=== PATIENT | female | born 1955 | race Caucasian/White ===

== ENCOUNTER 2016-05-27 13:01 | Inpatient (IN) | payer BC ==
[~2016-05-27] VITALS: Ht 172.7 cm; Wt 84.0 kg
[~2016-05-27 13:01] MED LIST: DORZO2%O EACH EYE; LATA.005%O OU; OXYC5 PO
[2016-06-01] MEDS ORDERED: NEOSTIGMINE 3 MG/3 ML SYR IV ONE (12:00)
[2016-06-01] MEDS ORDERED: ONDANSETRON HCL 4 MG/2 ML VIAL IV PUSH ONE (12:00)
[2016-06-01] MEDS ORDERED: PROPOFOL 200 MG/20 ML AMP IV ONE (12:00)
[2016-06-01] MEDS ORDERED: LACTATED RINGER'S 1000 ML INJ 1,000 ML IV ONE (12:00)
[2016-06-01] MEDS ORDERED: DORZ2SOL EACH EYE (13:38)
[2016-06-01] MEDS ORDERED: ICAPCAP PO (13:38)
[2016-06-01] MEDS ORDERED: LATA0.002 EACH EYE (13:38)
[2016-06-01] MEDS ORDERED: APIX2.5T PO (13:47)
[2016-06-01 13:48] VITALS: BP 121/73; PULSE 99; RESP 16; TEMP 98.1; O2SAT 99
[2016-06-01] MEDS ORDERED: INSULIN HUMAN REGULAR 1,000 UNITS/10 ML VIAL SQ PRN (14:00)
[2016-06-01] MEDS ORDERED: METOPROLOL TARTRATE 25 MG TAB PO PRN (14:00)
[2016-06-01] MEDS ORDERED: ceFAZolin 2 GM PREMIX 50 ML IV SCH (14:00)
[2016-06-01] MEDS ORDERED: LACTATED RINGER'S 1000 ML IV SCH (14:00)
[2016-06-01] MEDS ORDERED: METRONIDAZOLE 500 MG/100 ML ISONTONIC SOLN IV SCH (14:00)
[2016-06-01] MEDS ORDERED: SODIUM CHLORID 0.9% 500 ML IV SCH (14:00)
[2016-06-01] MEDS ORDERED: CHLORHEXIDINE GLUCONATE 2 % 1 PACK (2 CLOTHS) TOP SCH (14:15)
[2016-06-01] MEDS ORDERED: POVIDONE IODINE 5% (ANTISEPSIS KIT) 4 APPLICATIONS TOPICAL SCH (14:15)
[2016-06-01] MEDS ORDERED: FAMOTIDINE 20 MG/2 ML VIAL ONE (16:14)
[2016-06-01] MEDS ORDERED: MIDAZOLAM HCL 2 MG/2 ML VIAL ONE (16:14)
[2016-06-01] MEDS ORDERED: LIDOCAINE 1%/EPINEPHrine 1:100,000 SOLN 20 ML VIAL ONE (16:19)
[2016-06-01] MEDS ORDERED: fentaNYL CITRATE 250 MCG/5 ML AMP ONE (18:37)
[2016-06-01] MEDS ORDERED: *morphine SULFATE 8 MG/ML PERIprocedure ONLY ONE (18:43)
[2016-06-01] MEDS ORDERED: ACETAMINOPHEN 325 MG TAB PO PRN (18:45)
[2016-06-01] MEDS ORDERED: NALOXONE HCL 0.4 MG/ML AMP IV PRN (18:45)
[2016-06-01] MEDS ORDERED: POTASSIUM CHLOR 20 MEQ PREMIX 100 ML IV PRN (18:45)
[2016-06-01] MEDS ORDERED: BENZOCAINE 6 MG/MENTHOL 10 MG LOZENGE SUCK-ON PRN (18:45)
[2016-06-01] MEDS ORDERED: ACETAMINOPHEN/HYDROcodone 325 MG/5 MG TAB PO PRN ×2 (18:45)
[2016-06-01] MEDS ORDERED: MORPHINE SULFATE 30 MG/30 ML PCA IV SCH (18:45)
[2016-06-01] MEDS ORDERED: Post-op Orders (for Pharmacy) MISC XX ONE (18:45)
[2016-06-01] MEDS ORDERED: POTASSIUM CHLOR 40 MEQ PREMIX 100 ML IV PRN (18:45)
[2016-06-01] MEDS ORDERED: ENALAPRILAT 2.5 MG/2 ML VIAL IV PRN (18:45)
[2016-06-01] MEDS ORDERED: SODIUM CHLORIDE 0.9% FLUSH 5 ML FLUSH IVF PRN (18:45)
[2016-06-01] MEDS ORDERED: ENALAPRILAT 1.25 MG/ML VIAL IV PRN (18:45)
[2016-06-01] MEDS ORDERED: diphenhydrAMINE HCL 50 MG/ML VIAL IV PRN (18:45)
[2016-06-01] MEDS: D5-NS + KCL 20 MEQ INJ 1,000 ML IV SCH (18:54)
[2016-06-01 18:58] LABS: AUTOMATED NEUTROPHIL # 5.5 TH/MM3 (1.8-7.7); BASOPHIL % 0.4 % (0.0-2.0); EOSINOPHIL % 0.6 % (0.0-4.0); HEMATOCRIT 34.4 % (35.0-46.0); HEMO FLAGS DIFF FINAL; LYMPH % 9.2 % (9.0-44.0); LYMPHOCYTE # 0.6 TH/MM3 (1.0-4.8); MEAN CELL VOLUME 87.3 FL (80.0-100.0); MEAN CORPUSCULAR HEMOGLOBIN 27.7 PG (27.0-34.0); MEAN CORPUSCULAR HGB CONC 31.7 % (32.0-36.0); MONO % 6.7 % (0.0-8.0); NEUT % 83.1 % (16.0-70.0); PLATELET COUNT 247 TH/MM3 (150-450); RED BLOOD COUNT 3.94 MIL/MM3 (4.00-5.30); RED CELL DISTRIBUTION WIDTH 14.7 % (11.6-17.2); WHITE BLOOD COUNT 6.7 TH/MM3 (4.0-11.0)
[2016-06-01 19:12] LABS: BICARBONATE 21.5 MEQ/L (21.0-32.0); POTASSIUM 4.3 MEQ/L (3.5-5.1)
[2016-06-01] MEDS ORDERED: DO NOT ADM ANY ANTICOAGULANT DRUGS XX PRN (19:15)
[2016-06-01] MEDS ORDERED: KETOROLAC TROMETHAMINE 30 MG/ML (IVP) VIAL IVP SCH (20:00)
[2016-06-01 20:45] VITALS: BP 115/69; PULSE 87; RESP 18; TEMP 97.3; O2SAT 100
[2016-06-01 21:00] VITALS: PULSE 96
[2016-06-01] MEDS: LATANOPROST 0.005% OPHT SOLN 2.5 ML BTL EACH EYE SCH (21:18)
[2016-06-01] MEDS: DORZOLAMIDE 2% OPTH SOLN 200 DROP/10 ML BTLO EACH EYE SCH (21:18)
[2016-06-01] MEDS: SODIUM CHLORIDE 0.9% FLUSH 5 ML FLUSH IVF SCH (21:19)
[2016-06-01 22:00] VITALS: PULSE 64
[2016-06-01] MEDS: PCA - TOTAL MG MORPHINE DELIVERED PER SHIFT SCH (22:00)
[2016-06-01 23:00] VITALS: BP 115/69; PULSE 87; PULSE 96; RESP 18; TEMP 97.1; O2SAT 100
[2016-06-02] VITALS (28 sets, daily range): BP systolic 98–128; BP diastolic 53–76; PULSE 64–109; RESP 18–20; TEMP 97.1–98.2; O2SAT 93–99
[2016-06-02] MEDS ORDERED: SODIUM CHLOR 0.9% 1000 ML INJ 1,000 ML IV ONE (00:45)
[2016-06-02] MEDS: D5-NS + KCL 20 MEQ INJ 1,000 ML IV SCH ×3 (01:57→13:25)
[2016-06-02] MEDS: metroNIDAZOLE 500 MG INJ 100 ML IV SCH ×3 (01:57→16:35)
[2016-06-02] MEDS: PCA - TOTAL MG MORPHINE DELIVERED PER SHIFT SCH ×3 (06:00→22:00)
[2016-06-02 06:30] LABS: AUTOMATED NEUTROPHIL # 7.1 TH/MM3 (1.8-7.7); BASOPHIL % 0.3 % (0.0-2.0); EOSINOPHIL % 0.1 % (0.0-4.0); HEMATOCRIT 30.9 % (35.0-46.0); HEMO FLAGS DIFF FINAL; LYMPHOCYTE # 0.3 TH/MM3 (1.0-4.8); MEAN CELL VOLUME 87.2 FL (80.0-100.0); MEAN CORPUSCULAR HEMOGLOBIN 28.4 PG (27.0-34.0); MEAN CORPUSCULAR HGB CONC 32.5 % (32.0-36.0); MONO % 6.1 % (0.0-8.0); NEUT % 89.5 % (16.0-70.0); PLATELET COUNT 244 TH/MM3 (150-450); RED BLOOD COUNT 3.55 MIL/MM3 (4.00-5.30); RED CELL DISTRIBUTION WIDTH 14.9 % (11.6-17.2); WHITE BLOOD COUNT 7.9 TH/MM3 (4.0-11.0)
[2016-06-02 07:09] LABS: BICARBONATE 21.8 MEQ/L (21.0-32.0)
[2016-06-02] MEDS: SODIUM CHLORIDE 0.9% FLUSH 5 ML FLUSH IVF SCH ×2 (08:53→21:00)
[2016-06-02] MEDS: PANTOPRAZOLE SODIUM 40 MG VIAL IVP SCH (08:53)
[2016-06-02] MEDS: DORZOLAMIDE 2% OPTH SOLN 200 DROP/10 ML BTLO EACH EYE SCH ×2 (08:58→22:14)
[2016-06-02] MEDS: ONDANSETRON HCL 4 MG/2 ML VIAL IV PRN (15:55)
--- NOTE | 2016-06-02 15:56 | HHI.PR ---
Subjective Remarks POD#1 s/p THOMAS, resection/reanastomosis ileostomy nauseous Objective Vital Signs Date Time Temp Pulse Resp B/P Pulse Ox O2 Delivery O2 Flow Rate FiO2 06/02/16 15:13 109 06/02/16 15:04 96 21 06/02/16 14:34 87 06/02/16 14:00 18 06/02/16 13:14 85 06/02/16 12:12 97.8 92 18 103/60 98 06/02/16 12:10 92 06/02/16 11:04 98 06/02/16 10:33 98 06/02/16 09:15 68 06/02/16 09:04 98.0 84 18 98/53 98 06/02/16 07:35 78 06/02/16 06:00 100 06/02/16 06:00 20 06/02/16 05:00 96 06/02/16 04:00 77 06/02/16 03:58 99 Nasal Cannula 1.50 06/02/16 03:00 97.9 87 20 101/60 99 06/02/16 03:00 71 06/02/16 02:00 94 06/02/16 01:00 92 06/02/16 00:00 64 06/01/16 23:00 97.1 87 18 115/69 100 06/01/16 23:00 96 06/01/16 22:00 64 06/01/16 22:00 18 06/01/16 21:00 96 06/01/16 20:45 97.3 87 18 115/69 100 06/01/16 20:30 68 16 96/55 97 Nasal Cannula 2 06/01/16 19:30 58 16 130/68 99 Nasal Cannula 2 06/01/16 19:15 74 16 127/77 99 Nasal Cannula 2 06/01/16 19:00 74 16 142/83 100 Nasal Cannula 2 06/01/16 18:52 16 06/01/16 18:45 62 16 156/79 99 Nasal Cannula 2 06/01/16 18:34 97.6 81 16 142/79 97 Nasal Cannula 2 I/O 06/01/16 06/01/16 06/01/16 06/02/16 06/02/16 06/02/16 07:00 15:00 23:00 07:00 15:00 23:00 Intake Total 1200 ml 2930 ml Output Total 50 ml 350 ml Balance 1150 ml 2580 ml Intake Oral 480 ml IV Total 2450 ml Other 1200 ml Output Urine Total 0 ml 350 ml Estimated Blood Loss 50 ml # Voids 1 # Bowel Movements 0 Result Diagram: 06/02/1661406/02/16614 Objective Remarks Abdomen tender, nondistended Dressing - serosanguinous drainage Assessment and Plan Assessment and Plan Hold on PO until nausea resolves Ileus not unexpected with significant adhesiolysis Vicki Garcia MD Jun 02, 2016 15:56
[2016-06-02] MEDS ORDERED: HEPARIN SODIUM - SQ 10,000 UNITS/ML VIAL SQ SCH (16:00)
[2016-06-02] MEDS: LATANOPROST 0.005% OPHT SOLN 2.5 ML BTL EACH EYE SCH (22:14)
--- NOTE | 2016-06-02 23:58 | MP ---
cc: LEO GARCIA M.D., PAUL M. MD DATE OF SURGERY: 06/01/2016 PREOPERATIVE DIAGNOSIS: Rectal cancer. POSTOPERATIVE DIAGNOSIS 1. Rectal cancer 2. Adhesions. PROCEDURE 1. Resection with reanastomosis of ileostomy. 2. Lysis of adhesions. 3. Appendectomy. SURGEON Becca Garcia MD. HR MANAGER: None. ANESTHESIA: General per ET tube ESTIMATED BLOOD LOSS 100 cc OPERATIVE INDICATIONS The patient is a 61-year-old female who is status post neoadjuvant chemotherapy and radiation for a rectal cancer, followed by a robotic low anterior resection with diverting loop ileostomy. 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 In addition the appendix traversed through this and across, and was caught in the adhesions as well. OPERATIVE COURSE The patient was brought to the operating room, and placed in the supine position. After induction of general anesthesia, the skin of the anterior abdominal wall was prepped and draped in the usual sterile fashion. The stomal suture closed with 3-0 Vicryl. An incision was made sharply around the stoma and, using electrocautery, dissection was carried down to the edge of the fascia. This was slow and tedious as there was quite a bit of adhesions and there was a hernia sac over to the right. Eventually and with quite a bit of slow tedious dissection, we were able to free up the fascial edges on the inferior side and the right side. At that point, it was noted that the appendix was pulled into this as well, and had damage to it. I planned at that point proceeding with an appendectomy as well. Eventually we were able to free the small bowel of the hernia sac and had a clean fascia circumferentially and the bowel was prolapsed up and out of the peritoneal cavity. The distal bowel to the stoma, between the stoma and the cecum was clean, but fairly short in length, measuring possibly 10-12 cm in total length. The proximal bowel did have an area of fairly significant thinning and inflammation from where it had been stuck inside the hernia sac and so I did elect to place the proximal resection margin just upstream of this. The mesentery was cleared circumferentially and a LINDSAY 55 blue load stapler was placed across the bowel, both proximal and distal to the stoma. The intervening mesentery was serially divided and ligated using 0 Vicryl ties. The antimesenteric corners of the staple line were then removed. One limb of the gastrointestinal stapler was placed down each limb of the bowel. This was closed along the antimesenteric border, fired, and removed, thus creating an enteroenterotomy. The enteroenterotomy was closed transversely using the TX60 stapling device. The anastomosis was palpated and found to be widely patent, although somewhat smaller than my usual anastomosis. However, it lay nicely without tension. A simple stay suture was placed at the distal end of the anastomosis using 3-0 Vicryl and the mesenteric defect was closed in a running fashion using 3-0 Vicryl. There was a small area of bleeding on one of the staple lines and this was controlled in a [id number] fashion, using 3-0 Vicryl. The anastomosis and bowel were then gently prolapsed back into the peritoneal cavity. The area where the appendix had stuck to the fascia was then dissected free using electrocautery, and the appendiceal vessels were dissected free, doubly clamped proximally, divided and ligated using 0 Vicryl ties. A reload of the LINDSAY 55 stapler was then placed across the base of the appendix, fired and removed. There was a small amount of bleeding on the staple line that was controlled with [id number] fashion using 3-0 Vicryl. This was also placed back into the peritoneal cavity where it lay nicely without tension. The posterior fascia of the anterior abdominal wall was then closed in a running fashion using #1 PDS and the anterior fascia of the anterior abdominal wall was closed in running fashion using #1 PDS. The wound was copiously irrigated with warm normal saline and the skin was closed in a running subcuticular fashion using 3-0 Vicryl. Sterile dressing was then applied. All sponge, needle and instrument counts were correct, and the patient was returned to the Post-Anesthesia Care Unit in stable condition. MD SOPHIE [place]/ANABEL /6:45 PM /11:31 PM LEANDRO
[2016-06-03] VITALS (15 sets, daily range): BP systolic 109–142; BP diastolic 67–92; PULSE 86–117; RESP 16–20; TEMP 96.2–99.5; O2SAT 93–96
[2016-06-03] MEDS: D5-NS + KCL 20 MEQ INJ 1,000 ML IV SCH ×3 (00:09→13:59)
[2016-06-03] MEDS: PCA - TOTAL MG MORPHINE DELIVERED PER SHIFT SCH (06:00)
[2016-06-03 06:14] LABS: AUTOMATED NEUTROPHIL # 8.6 TH/MM3 (1.8-7.7); BASOPHIL % 0.1 % (0.0-2.0); HEMATOCRIT 32.7 % (35.0-46.0); HEMO FLAGS DIFF FINAL; LYMPH % 2.8 % (9.0-44.0); LYMPHOCYTE # 0.3 TH/MM3 (1.0-4.8); MEAN CELL VOLUME 86.7 FL (80.0-100.0); MEAN CORPUSCULAR HGB CONC 32.3 % (32.0-36.0); MONO % 5.3 % (0.0-8.0); NEUT % 91.8 % (16.0-70.0); PLATELET COUNT 225 TH/MM3 (150-450); RED BLOOD COUNT 3.77 MIL/MM3 (4.00-5.30); RED CELL DISTRIBUTION WIDTH 14.6 % (11.6-17.2); WHITE BLOOD COUNT 9.3 TH/MM3 (4.0-11.0)
[2016-06-03 06:36] LABS: BICARBONATE 21.3 MEQ/L (21.0-32.0); POTASSIUM 3.5 MEQ/L (3.5-5.1)
--- NOTE | 2016-06-03 07:03 | HHI.PR ---
Subjective Remarks POD#1 s/p THOMAS, resection/reanastomosis ileostomy nausea improved, slight return with ambulation Objective Vital Signs Date Time Temp Pulse Resp B/P Pulse Ox O2 Delivery O2 Flow Rate FiO2 06/03/16 06:00 18 06/03/16 05:00 101 06/03/16 04:00 101 06/03/16 03:00 99.5 112 20 142/92 95 06/03/16 03:00 93 06/03/16 02:00 104 06/03/16 01:00 99 06/03/16 00:00 98 06/02/16 23:00 100 06/02/16 23:00 97.5 104 18 126/76 95 06/02/16 22:00 86 06/02/16 22:00 18 06/02/16 21:00 100 06/02/16 20:00 102 06/02/16 19:00 95 06/02/16 19:00 97.1 103 20 128/73 93 06/02/16 18:37 91 06/02/16 17:11 90 06/02/16 16:18 98.2 88 18 100/68 98 06/02/16 16:16 88 06/02/16 15:13 109 06/02/16 15:04 96 21 06/02/16 14:34 87 06/02/16 14:00 18 06/02/16 13:14 85 06/02/16 12:12 97.8 92 18 103/60 98 06/02/16 12:10 92 06/02/16 11:04 98 06/02/16 10:33 98 06/02/16 09:15 68 06/02/16 09:04 98.0 84 18 98/53 98 06/02/16 07:35 78 I/O 06/02/16 06/02/16 06/02/16 06/03/16 06/03/16 06/03/16 07:00 15:00 23:00 07:00 15:00 23:00 Intake Total 2930 ml 2160 ml 2100 ml Output Total 350 ml 1000 ml Balance 2580 ml 1160 ml 2100 ml Intake Oral 480 ml 360 ml 300 ml IV Total 2450 ml 1800 ml 1800 ml Output Urine Total 350 ml 1000 ml # Voids 2 # Bowel Movements 0 2 Result Diagram: 06/03/16 0545 06/03/16 0545 Objective Remarks Abdomen tender, nondistended, soft Wound clean Assessment and Plan Assessment and Plan Cautious sips clears Transfer to B Vicki Garcia MD Jun 03, 2016 07:03
[2016-06-03] MEDS: PANTOPRAZOLE SODIUM 40 MG VIAL IVP SCH (08:29)
[2016-06-03] MEDS: SODIUM CHLORIDE 0.9% FLUSH 5 ML FLUSH IVF SCH ×2 (08:30→21:40)
[2016-06-03] MEDS: DORZOLAMIDE 2% OPTH SOLN 200 DROP/10 ML BTLO EACH EYE SCH ×2 (08:31→21:39)
[2016-06-03] MEDS: ONDANSETRON HCL 4 MG/2 ML VIAL IV PRN ×2 (11:31→18:28)
[2016-06-03] MEDS: LATANOPROST 0.005% OPHT SOLN 2.5 ML BTL EACH EYE SCH (21:40)
[2016-06-04] VITALS: BP 110/63; PULSE 102; RESP 16; TEMP 98.3; O2SAT 95
[2016-06-04 05:38] LABS: AUTOMATED NEUTROPHIL # 5.4 TH/MM3 (1.8-7.7); BASOPHIL % 0.1 % (0.0-2.0); EOSINOPHIL % 0.1 % (0.0-4.0); HEMO FLAGS DIFF FINAL; LYMPH % 3.5 % (9.0-44.0); LYMPHOCYTE # 0.2 TH/MM3 (1.0-4.8); MEAN CELL VOLUME 84.9 FL (80.0-100.0); MEAN CORPUSCULAR HEMOGLOBIN 28.4 PG (27.0-34.0); MEAN CORPUSCULAR HGB CONC 33.4 % (32.0-36.0); MONO % 10.3 % (0.0-8.0); PLATELET COUNT 228 TH/MM3 (150-450); RED BLOOD COUNT 3.65 MIL/MM3 (4.00-5.30); RED CELL DISTRIBUTION WIDTH 14.6 % (11.6-17.2); WHITE BLOOD COUNT 6.3 TH/MM3 (4.0-11.0)
[2016-06-04 05:46] LABS: POTASSIUM 3.4 MEQ/L (3.5-5.1)
[2016-06-04 08:00] VITALS: BP 136/72; PULSE 108; RESP 18; TEMP 98.4; O2SAT 93
[2016-06-04] MEDS: DORZOLAMIDE 2% OPTH SOLN 200 DROP/10 ML BTLO EACH EYE SCH ×2 (10:09→20:32)
[2016-06-04] MEDS: SODIUM CHLORIDE 0.9% FLUSH 5 ML FLUSH IVF SCH ×2 (10:10→20:33)
[2016-06-04] MEDS: PANTOPRAZOLE SODIUM 40 MG VIAL IVP SCH (10:14)
[2016-06-04 12:00] VITALS: BP 112/69; PULSE 99; RESP 17; TEMP 98.3; O2SAT 95
[2016-06-04 16:00] VITALS: BP 136/80; PULSE 94; RESP 18; TEMP 98.4; O2SAT 96
--- NOTE | 2016-06-04 19:06 | HHI.PR ---
Subjective Remarks POD#3 s/p THOMAS, resection/reanastomosis ileostomy comfortable, passing stool and gas Objective Vital Signs Date Time Temp Pulse Resp B/P Pulse Ox O2 Delivery O2 Flow Rate FiO2 06/04/16 16:00 98.4 94 18 136/80 96 06/04/16 12:00 98.3 99 17 112/69 95 06/04/16 08:00 98.4 108 18 136/72 93 06/04/16 00:00 98.3 102 16 110/63 95 06/03/16 20:00 98.8 104 16 109/76 93 I/O 06/03/16 06/03/16 06/03/16 06/04/16 06/04/16 06/04/16 07:00 15:00 23:00 07:00 15:00 23:00 Intake Total 2100 ml 840 ml 620 ml 120 ml 475 ml Output Total 350 ml 200 ml Balance 2100 ml 840 ml 620 ml -230 ml 275 ml Intake Oral 300 ml 120 ml 240 ml 120 ml 475 ml IV Total 1800 ml 720 ml 380 ml Output Urine Total 350 ml 200 ml # Voids 2 5 3 4 # Bowel Movements 2 4 0 0 4 Result Diagram: 06/04/16 0433 06/04/16 0433 Objective Remarks Abdomen tender, nondistended, soft Wound clean Assessment and Plan Assessment and Plan Advance diet Home soon Vicki Garcia MD Jun 04, 2016 19:06
[2016-06-04 20:00] VITALS: BP 121/60; PULSE 103; RESP 16; TEMP 98.7; O2SAT 96
[2016-06-04] MEDS: LATANOPROST 0.005% OPHT SOLN 2.5 ML BTL EACH EYE SCH (20:31)
[2016-06-05] VITALS: BP 117/64; PULSE 99; RESP 16; TEMP 99.2; O2SAT 94
[2016-06-05 08:00] VITALS: BP 113/70; PULSE 89; RESP 16; TEMP 98.1; O2SAT 94
[2016-06-05] MEDS: PANTOPRAZOLE SODIUM 40 MG VIAL IVP SCH (08:27)
[2016-06-05] MEDS: DORZOLAMIDE 2% OPTH SOLN 200 DROP/10 ML BTLO EACH EYE SCH (08:27)
[2016-06-05] MEDS: SODIUM CHLORIDE 0.9% FLUSH 5 ML FLUSH IVF SCH (08:28)
[2016-06-05 12:00] VITALS: BP 107/69; PULSE 89; RESP 22; TEMP 96.8; O2SAT 96
--- NOTE | 2016-06-05 14:52 | HHI.PR ---
Subjective Remarks POD#4 s/p THOMAS, resection/reanastomosis ileostomy comfortable, wants to go home Objective Vital Signs Date Time Temp Pulse Resp B/P Pulse Ox O2 Delivery O2 Flow Rate FiO2 06/05/16 12:00 96.8 89 22 107/69 96 06/05/16 08:00 98.1 89 16 113/70 94 06/05/16 00:00 99.2 99 16 117/64 94 06/04/16 20:00 98.7 103 16 121/60 96 06/04/16 16:00 98.4 94 18 136/80 96 I/O 06/04/16 06/04/16 06/04/16 06/05/16 06/05/16 06/05/16 07:00 15:00 23:00 07:00 15:00 23:00 Intake Total 120 ml 475 ml 420 ml 120 ml Output Total 350 ml 200 ml Balance -230 ml 275 ml 420 ml 120 ml Intake Oral 120 ml 475 ml 420 ml 120 ml Output Urine Total 350 ml 200 ml # Voids 4 3 2 # Bowel Movements 0 4 5 3 Result Diagram: 06/04/16 0433 06/04/16 0433 Objective Remarks Abdomen tender, nondistended, soft Wound clean Assessment and Plan Assessment and Plan Home today Vicki Garcia MD Jun 05, 2016 14:52
[2016-06-05] MEDS ORDERED: HYDR-3516 PO (14:54)
--- NOTE | 2016-06-10 15:07 | MD ---
cc: LEO YEE M.D. Corrected Copy: 06/15/16 ADMISSION DATE: 06/01/2016 DISCHARGE DATE: 06/05/2016 ADMISSION DIAGNOSIS Rectal cancer. DISCHARGE DIAGNOSIS Rectal cancer. PROCEDURES Resection and reanastomosis of ileostomy Extensive lysis of adhesions Appendectomy. BRIEF HISTORY AND HOSPITAL COURSE The patient is a 61-year-old female who is status post chemotherapy, radiation and a low anterior resection with diverting loop ileostomy for rectal cancer. She was admitted to the hospital on June 01, 2016 where she underwent the above-named procedure. Postoperatively she did well with rapid return of bowel and bladder function. She was discharged home on June 05, 2016 with instructions to follow-up with myself in the office. Final pathology showed no sign of malignancy. MD SOPHIE [place]/BT /2:59 PM /10:00 AM [email or web address]
== END 2016-06-05 17:05 | disposition home or self-care (01) | DRG 330 ==
LOC: HSDI 06-01 12:58 → HCIS 06-01 20:41 → N07B 06-03 14:07
PROVIDERS: ADMIT Colon & Rectal Surgery; ATTEND Colon & Rectal Surgery
PROC: 0DNJ0ZZ Release Appendix, Open Approach (ICD-10-PCS; 2016-06-01)
PROC: 0WQF0ZZ Repair Abdominal Wall, Open Approach (ICD-10-PCS; 2016-06-01)
PROC: 0DTJ0ZZ Resection of Appendix, Open Approach (ICD-10-PCS; 2016-06-01)
PROC: 0DQB0ZZ Repair Ileum, Open Approach (ICD-10-PCS; principal; 2016-06-01 16:27)
DX: Z43.2 Encounter for attention to ileostomy (principal); K56.7 Ileus, unspecified; K43.5 Parastomal hernia without obstruction or gangrene; K38.8 Other specified diseases of appendix; K66.0 Peritoneal adhesions (postprocedural) (postinfection); H40.9 Unspecified glaucoma; Z85.048 Personal history of other malignant neoplasm of rectum, rectosigmoid junction, and anus; Z90.49 Acquired absence of other specified parts of digestive tract; Z92.21 Personal history of antineoplastic chemotherapy; Z92.3 Personal history of irradiation; Z80.0 Family history of malignant neoplasm of digestive organs
CPT/HCPCS: 80048; 85025; 86850; 86900; 86901; 88302; 88304; 88305; 94150; C9113; J0690; J1885; J2250; J2270; J2405; J2710; J3010; J3480; J7030; J7120